=== PATIENT | male | born 1995 | race African-American/Black ===

== ENCOUNTER 2018-06-30 21:44 | Emergency (ER) | END 2018-07-01 03:23 | disposition home or self-care (01) ==

== ENCOUNTER 2018-07-01 15:18 | Emergency (ER) | END 2018-07-01 20:00 | disposition home or self-care (01) ==

== ENCOUNTER 2018-10-11 21:37 | Emergency (ER) | payer MEDICARE, OTHER ==
[~2018-10-11] VITALS: Ht 175.3 cm; Wt 150.1 kg
[2018-10-11 21:46] VITALS: Ht 175.3 cm; Wt 150.1 kg
[2018-10-12] MEDS ORDERED: PENICILLIN G BENZ 1.2 MIL UNIT SYG IM ONE (04:00)
--- NOTE | 2018-10-12 04:12 | ERD ---
ER Documentation Chief Complaint Chief Complaint CANNOT SWALLOW X'S 1 DAY HPI This is a 22-year-old male with complaints of painful swallowing for 1 day. Pain is more severe when he swallows. Denies any fevers or chills. Denies any other current complaints. ROS All systems reviewed and are negative except as per history of present illness. Medications Home Meds No Active Prescriptions or Reported Meds Allergies Allergies: Coded Allergies: No Known Allergy (Unverified , 07/01/18) PMhx/Soc History of Surgery: No Anesthesia Reaction: No Hx Neurological Disorder: No Hx Respiratory Disorders: No Hx Cardiac Disorders: No Hx Psychiatric Problems: No Hx Miscellaneous Medical Probl: No Hx Alcohol Use: Yes Hx Substance Use: Yes (marijuana) Hx Tobacco Use: Yes Smoking Status: Current every day smoker Physical Exam Vitals Vital Signs Date Temp Pulse Resp B/P (MAP) Pulse Ox O2 O2 Flow FiO2 Time Delivery Rate 10/11/18 98.3 75 20 178/85 98 21:46 (116) Physical Exam Const: No acute distress Head: Atraumatic Eyes: Normal Conjunctiva ENT: Right peritonsillar exudate with no uvular deviation. Neck: Full range of motion. No meningismus. Resp: Clear to auscultation bilaterally Cardio: Regular rate and rhythm, no murmurs Abd: Soft, non tender, non distended. Normal bowel sounds Skin: No petechiae or rashes Back: No midline or flank tenderness Ext: No cyanosis, or edema Neur: Awake and alert Psych: Normal Mood and Affect Results 24 hrs Current Medications Medications Dose Sig/Yaid Start Time Status Last (Trade) Ordered Route PRN Stop Time Admin Dose Reason Admin Penicillin 1,200,000 ONCE ONCE 10/12/18 DC 10/12/18 G units IM 04:00 04:07 Benzathine 10/12/18 04:01 (Bicillin La) Procedures/MDM Medical decision making: This is a 22-year-old male with pharyngitis. At this point is clinically stable for outpatient management. Patient will be discharged home and told to follow-up with primary care physician. Return for worsening symptoms. Patient treated with Pen-Vee K shot here in the emergency department. Tolerated shot well Departure Diagnosis: Primary Impression: Pharyngitis Pharyngitis/tonsillitis etiology: unspecified etiology Qualified Codes: J02.9 - Acute pharyngitis, unspecified Condition: Stable KASHIF KNTUSON Oct 12, 2018 04:12
[2018-10-12 04:16] VITALS: BP 143/83; PULSE 76; RESP 18
[2018-10-12] MEDS ORDERED: IBUP-1542 PO (04:16)
== END 2018-10-12 04:30 | disposition home or self-care (01) ==
LOC: E/R 21:37
DX: J02.9 Acute pharyngitis, unspecified (principal); F17.210 Nicotine dependence, cigarettes, uncomplicated
CPT/HCPCS: 96372; 99284; J0561